=== PATIENT | male | born 1950 | race Caucasian/White ===

== ENCOUNTER 2016-09-10 09:26 | Inpatient (IN) | payer MEDICARE ==
[~2016-09-10] VITALS: Ht 188 cm; Wt 154.2 kg
[2016-09-10 15:10] VITALS: BP 166/76
[2016-09-10 15:30] VITALS: BP 166/76
[2016-09-10 16:36] LABS: BASO # 0.1 x10^3/uL (0.0-0.2); BASO % 1 % (0-3); EOS % 1 % (0-3); HEMOGLOBIN 13.4 g/dL (13.0-17.5); LYMPH # 1.6 x10^3/uL (1.0-4.8); LYMPH % 18 % (24-48); MEAN CORPUSCULAR HEMOGLOBIN 31 pg (25-35); MEAN CORPUSCULAR HGB CONC 33 g/dL (31-37); MEAN CORPUSCULAR VOLUME 93 fL (79-100); MONO % 5 % (0-9); NEUT % 76 % (31-73); PLATELET COUNT 230 x10^3/uL (140-400); RED BLOOD COUNT 4.31 x10^6/uL (4.30-5.70); RED CELL DISTRIBUTION WIDTH 13.9 % (11.5-14.5); WHITE BLOOD COUNT 9.3 x10^3/uL (4.0-11.0)
[2016-09-10 16:57] LABS: ALBUMIN/GLOBULIN RATIO 0.8 (1.0-1.7); CALCIUM 9.6 mg/dL (8.5-10.1); CREATININE 1.4 mg/dL (0.7-1.3); GFR 50.9; POTASSIUM 4.7 mmol/L (3.5-5.1); TOTAL BILIRUBIN 0.3 mg/dL (0.2-1.0)
[2016-09-10] MEDS ORDERED: GUAI400T63 PO (18:19)
[2016-09-10] MEDS ORDERED: ASPI-482 PO (18:19)
[2016-09-10] MEDS ORDERED: SITA100T PO (18:19)
[2016-09-10] MEDS ORDERED: HYDR25TA9 PO (18:19)
[2016-09-10] MEDS ORDERED: ALLO100T PO (18:19)
[2016-09-10] MEDS ORDERED: SIMV20TA3 PO (18:19)
[2016-09-10] MEDS ORDERED: METO50TA2 PO (18:19)
[2016-09-10] MEDS ORDERED: PIOG30TA41 PO (18:19)
[2016-09-10] MEDS ORDERED: METF-620 PO (18:19)
[2016-09-10] MEDS ORDERED: MULT1TAB52 PO (18:19)
[2016-09-10 19:00] VITALS: BP 140/65
[2016-09-10] MEDS: METOPROLOL TART IMMED RELEASE 50 MG TABLET. PO SCH (20:38)
[2016-09-10] MEDS: SIMVASTATIN 20 MG TABLET PO SCH (20:38)
--- NOTE | 2016-09-10 20:59 | PDOC ---
GENERAL General: unable to dictate H&P due to dictation system being down. briefly patient well controlled diabetic with HbA1C of 5.8 earlier this year. cultures 2 weeks ago showed MSSA and enterococcus. has been on good coverage without improvement in toe. Had MRI foot yesterday showing ulcer inferior to the proximal phalanx of the right great toe with a small fluid collection, likely an abcess, between the proximal phalanx of the toe and the ulcer at the inferior border of the toe. the fluid collection measures up to 2.5 cm. there is also marrow edema and likely enhancement in the proximal phalanx of the great toe adjacent to the abscess suspicious for osteomyelitis. ESR 2 weeks ago was 55 in office. Patient also has history of hypertension and gout. He has no drug allergies. He has no pain at the site of infection likely related to neuropathy. Patient is a nonsmoker and does not use drugs. He is a nurse. He has wine on occasion. 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 Antibiotics have been started and ortho and ID have been consulted. He will likely need debridement of the wound. Problems: VITAL SIGNS Vital Signs: Vital Signs Date Time Temp Pulse Resp B/P (MAP) Pulse Ox O2 Delivery O2 Flow Rate FiO2 09/10/16 20:38 80 140/65 09/10/16 19:54 Room Air 09/10/16 19:00 98.1 20 99 98.1 ALLERGIES Allergies: Allergies Coded Allergies Type Severity Reaction Last Updated Verified No Known Drug Allergies 09/10/16 No MEDS Medications: Current Medications Medications (Trade) Dose Ordered Sig/Mark Start Time Stop Time Status Last Admin Dose Admin Allopurinol (Zyloprim) 100 mg DAILY 09/11/16 09:00 Aspirin (Ecotrin) 81 mg 1X ONCE 09/10/16 20:45 09/10/16 20:46 UNV Guaifenesin (Robitussin) 400 mg BID 09/10/16 21:00 Hydrochlorothiazide (Hydrodiuril) 25 mg DAILY 09/11/16 09:00 Linagliptin (Tradjenta) 5 mg DAILY 09/11/16 09:00 Metformin HCl (Glucophage) 1,000 mg 1X ONCE 09/10/16 20:45 09/10/16 20:46 UNV Metoprolol Tartrate (Lopressor) 50 mg BID 09/10/16 21:00 09/10/16 20:38 50 MG Multivitamins (Thera M Plus) 1 tab DAILY 09/11/16 09:00 Pioglitazone HCl (Actos) 30 mg DAILY 09/11/16 09:00 Piperacillin Sod/ Tazobactam Sod 3.375 gm/Sodium Chloride 50 ml @ 100 mls/hr Q6HRS 09/10/16 21:00 Simvastatin (Zocor) 20 mg HS 09/10/16 21:00 09/10/16 20:38 20 MG Vancomycin HCl (Vanco Per Pharmacy) 1 each PRN DAILY PRN 09/10/16 20:00 Vancomycin HCl 2 gm/Sodium Chloride 500 ml @ 250 mls/hr 1X ONCE 09/10/16 21:00 09/10/16 22:59 LAB Lab: Laboratory Tests Test 09/10/16 15:57 09/10/16 16:20 09/10/16 20:36 Glucose (Fingerstick) 200 mg/dL (70-99) 121 mg/dL (70-99) White Blood Count 9.3 x10^3/uL (4.0-11.0) Red Blood Count 4.31 x10^6/uL (4.30-5.70) Hemoglobin 13.4 g/dL (13.0-17.5) Hematocrit 40.0 % (39.0-53.0) Mean Corpuscular Volume 93 fL (79-100) Mean Corpuscular Hemoglobin 31 pg (25-35) Mean Corpuscular Hemoglobin Concent 33 g/dL (31-37) Red Cell Distribution Width 13.9 % (11.5-14.5) Platelet Count 230 x10^3/uL (140-400) Neutrophils (%) (Auto) 76 % (31-73) Lymphocytes (%) (Auto) 18 % (24-48) Monocytes (%) (Auto) 5 % (0-9) Eosinophils (%) (Auto) 1 % (0-3) Basophils (%) (Auto) 1 % (0-3) Neutrophils # (Auto) 7.1 x10^3uL (1.8-7.7) Lymphocytes # (Auto) 1.6 x10^3/uL (1.0-4.8) Monocytes # (Auto) 0.5 x10^3/uL (0.0-1.1) Eosinophils # (Auto) 0.1 x10^3/uL (0.0-0.7) Basophils # (Auto) 0.1 x10^3/uL (0.0-0.2) Erythrocyte Sedimentation Rate 45 (0-15) Sodium Level 138 mmol/L (136-145) Potassium Level 4.7 mmol/L (3.5-5.1) Chloride Level 106 mmol/L (98-107) Carbon Dioxide Level 25 mmol/L (21-32) Anion Gap 7 (6-14) Blood Urea Nitrogen 29 mg/dL (8-26) Creatinine 1.4 mg/dL (0.7-1.3) Estimated GFR (Cockcroft-Gault) 50.9 BUN/Creatinine Ratio 21 (6-20) Glucose Level 202 mg/dL (70-99) Calcium Level 9.6 mg/dL (8.5-10.1) Total Bilirubin 0.3 mg/dL (0.2-1.0) Aspartate Amino Transf (AST/SGOT) 18 U/L (15-37) Alanine Aminotransferase (ALT/SGPT) 22 U/L (16-63) Alkaline Phosphatase 62 U/L (46-116) Total Protein 7.0 g/dL (6.4-8.2) Albumin 3.0 g/dL (3.4-5.0) Albumin/Globulin Ratio 0.8 (1.0-1.7) MARLI THOMPSON MD Sep 10, 2016 20:59
[2016-09-10] MEDS ORDERED: VANCOMYCIN 2 GM in IV NORMAL SALINE 500ML BAG 500 ML IV ONE (21:00)
[2016-09-10] MEDS ORDERED: ASPIRIN ENTERIC COATED 81 MG TABLET.DR. PO ONE (21:00)
[2016-09-10] MEDS: VANCOMYCIN PER PHARMACY MC PRN (21:36)
[2016-09-10] MEDS: PIPERACILLIN/TAZOBACTAM 3.375 GM in IV NORMAL SALINE 50ML 50 ML IV SCH (21:42)
[2016-09-10 23:00] VITALS: BP 132/72
[2016-09-11] MEDS: PIPERACILLIN/TAZOBACTAM 3.375 GM in IV NORMAL SALINE 50ML 50 ML IV SCH ×3 (06:32→18:28)
[2016-09-11 07:00] VITALS: BP 113/65
--- NOTE | 2016-09-11 07:34 | RAD ---
Portable right foot, 3 views, 09/10/2016: History: Osteomyelitis There is severe hypertrophic degenerative change at the first MTP joint. There are small bony fragments and/or periarticular soft tissue calcifications along the plantar aspect of that joint. There is focal soft tissue swelling along the medial margin of the proximal phalanx of the great toe. There is an ill-defined lucency with sclerotic margins in the proximal aspect of the proximal phalanx raising the possibility of chronic osteomyelitis. There is moderate degenerative change at the IP joint of the great toe. There are other moderate scattered hypertrophic degenerative changes, particularly at the midfoot level. There is moderate arthritic change at the ankle joint. There is moderate subcutaneous edema about the foot and ankle. Mild scattered vascular calcifications are noted. IMPRESSION: 1. Extensive degenerative changes, most severe at the first MTP joint with periarticular calcifications and/or bone fragments. 2. Ill-defined lucency in the proximal phalanx of the great toe suggesting chronic osteomyelitis versus a geode on an arthritic basis.
[2016-09-11] MEDS: hydroCHLOROthiazide 25 MG TABLET PO SCH (08:09)
[2016-09-11] MEDS: PIOGLITAZONE 15 MG TABLET. PO SCH (08:09)
[2016-09-11] MEDS: ASPIRIN ENTERIC COATED 81 MG TABLET.DR. PO SCH (08:09)
[2016-09-11] MEDS: METOPROLOL TART IMMED RELEASE 50 MG TABLET. PO SCH ×3 (08:11→20:57)
[2016-09-11] MEDS: LINAGLIPTIN 5 MG TABLET PO SCH (08:13)
[2016-09-11] MEDS: MULTIVITAMIN with MINERAL TABLET. PO SCH (08:13)
[2016-09-11] MEDS: ALLOPURINOL 100 MG TABLET. PO SCH (08:13)
--- NOTE | 2016-09-11 10:39 | PDOC ---
Provider Note Provider Note dm w/ foot osteo, on vanc/zosyn pending cult- labs ok- terrible great toe appearance , mtp joint at risk, likely amp needed- will cont vanc/zosyn for now , dr sandoval consulted HENRY MENDEZ MD Sep 11, 2016 10:39
--- NOTE | 2016-09-11 10:50 | PDOC2 ---
CONSULT Date of Consult Date of Consult DATE: 09/10/16 TIME: 18:38 Reason for Consult Reason for Consult: right foot osteomyelitis Identification/Chief Complaint Chief Complaint right foot ulcer/ drainage Problems: Source Source: Chart review, Patient History of Present Illness Reason for Visit: The patient is a 65 year old male with well controlled DM who has been treated for an ulcer on his foot since may. He states that there was a large callous over the area that has since decompressed. Per Dr. Estrella's note, his cultures previously grew MSSA and enterococcus. He has been treated by his PCP. He was sent in today for a direct admit for his foot. He had an MRI done that reportedly shows edema in the bone with adjacent abscess. I have not seen the images as of yet. He has no fevers, chills, nausea, vomiting. His bg is well controlled. He drinks socially and does not smoke. He is employed as a nurse. Past Medical History Endocrine: Diabetes Past Surgical History Past Surgical History: No pertinent history Family History Family History: No Significant Social History No ALCOHOL: occassional Drugs: None Current Problem List Problem List left foot osteomyelitis Current Medications Current Medications Current Medications Allopurinol (Zyloprim) 100 mg DAILY PO Last administered on 09/11/16 08:13; Start 09/11/16 at 09:00 Aspirin (Ecotrin) 81 mg DAILY PO Last administered on 09/11/16 08:09; Start 09/11/16 at 09:00 Hydrochlorothiazide (Hydrodiuril) 25 mg DAILY PO Last administered on 09/11/16 08:09; Start 09/11/16 at 09:00 Metformin HCl (Glucophage) 1,000 mg BIDWMEALS PO Last administered on 09/11/16 08:09; Start 09/11/16 at 08:00 Metoprolol Tartrate (Lopressor) 50 mg BID PO Last administered on 09/10/16 20: 38; Start 09/10/16 at 21:00 Simvastatin (Zocor) 20 mg HS PO Last administered on 09/10/16 20:38; Start at 21:00 Guaifenesin (Robitussin) 400 mg BID PO ; Start 09/10/16 at 21:00 Multivitamins (Thera M Plus) 1 tab DAILY PO Last administered on 09/11/16 08:13 ; Start 09/11/16 at 09:00 Pioglitazone HCl (Actos) 30 mg DAILY PO Last administered on 09/11/16 08:09; Start 09/11/16 at 09:00 Linagliptin (Tradjenta) 5 mg DAILY PO Last administered on 09/11/16 08:13; Start 09/11/16 at 09:00 Piperacillin Sod/ Tazobactam Sod 3.375 gm/Sodium Chloride 50 ml @ 100 mls/hr Q6HRS IV Last administered on 09/11/16 06:32; Start 09/10/16 at 21:00 Vancomycin HCl (Vanco Per Pharmacy) 1 each PRN DAILY PRN MC SEE COMMENTS Last administered on 09/10/16 21:36; Start 09/10/16 at 20:00 Vancomycin HCl 2 gm/Sodium Chloride 500 ml @ 250 mls/hr 1X ONCE IV Last administered on 09/10/16 22:59; Start 09/10/16 at 21:00; Stop 09/10/16 at 22:59 ; Status DC Aspirin (Ecotrin) 81 mg 1X ONCE PO Last administered on 09/10/16 21:42; Start 09/10/16 at 21:00; Stop 09/10/16 at 21:01; Status DC Metformin HCl (Glucophage) 1,000 mg 1X ONCE PO Last administered on 09/10/16 21:42; Start 09/10/16 at 21:00; Stop 09/10/16 at 21:01; Status DC Vancomycin HCl 2 gm/Sodium Chloride 500 ml @ 250 mls/hr Q12H IV ; Start at 11:00 Vancomycin HCl 1 each 1X ONCE MC ; Start 09/12/16 at 10:30; Stop 09/12/16 at 10: 31 Active Scripts Active Reported Guaifenesin 400 Mg Tablet 400 Mg PO BID Multivitamins (Multivitamin) 1 Each Tablet 1 Tab PO DAILY Aspir 81 (Aspirin) 81 Mg Tablet.dr 81 Mg PO Allopurinol 100 Mg Tablet 1 Tab PO DAILY Simvastatin 20 Mg Tablet 20 Mg PO HS Actos (Pioglitazone Hcl) 30 Mg Tablet 30 Mg PO DAILY Januvia (Sitagliptin Phosphate) 100 Mg Tablet 100 Mg PO DAILY Metformin Hcl 1,000 Mg Tablet 1,000 Mg PO BIDWMEALS Metoprolol Tartrate 50 Mg Tablet 50 Mg PO BID Hydrochlorothiazide Tablet (Hydrochlorothiazide) 25 Mg Tablet 25 Mg PO DAILY Allergies Allergies: Coded Allergies: No Known Drug Allergies (Unverified , 09/10/16) ROS General: No: Chills, Night Sweats, Fatigue, Malaise, Appetite, Other Musculoskeletal: Yes Gait Disturbance, Yes Joint Pain, Yes Joint Stiffness, Yes Joint Swelling Physical Exam Physical Exam Right foot with dressing in place, removed. large great toe with minimal movement. callous present on the undersurface of the foot with minimal drainage. Large area of skin sloughing and thickening, darkened in color with foul odor. Unable to probe to bone due to the large amount of soft tissue present on the undersurface of the foot. 2+ DP and PT pulse. no chronic venous stasis changes on his legs. otherwise nvi distally. General: Alert, Oriented X3, Cooperative, No acute distress HEENT: Atraumatic Lungs: Normal air movement Vitals VITALS Vital Signs Date Time Temp Pulse Resp B/P (MAP) Pulse Ox O2 Delivery O2 Flow Rate FiO2 09/11/16 08:14 59 113/65 09/11/16 07:00 97.6 18 98 Room Air 97.6 Labs Labs Laboratory Tests Test 09/10/16 15:57 09/10/16 16:20 09/10/16 20:36 09/11/16 07:37 Glucose (Fingerstick) 200 mg/dL (70-99) 121 mg/dL (70-99) 106 mg/dL (70-99) White Blood Count 9.3 x10^3/uL (4.0-11.0) Red Blood Count 4.31 x10^6/uL (4.30-5.70) Hemoglobin 13.4 g/dL (13.0-17.5) Hematocrit 40.0 % (39.0-53.0) Mean Corpuscular Volume 93 fL (79-100) Mean Corpuscular Hemoglobin 31 pg (25-35) Mean Corpuscular Hemoglobin Concent 33 g/dL (31-37) Red Cell Distribution Width 13.9 % (11.5-14.5) Platelet Count 230 x10^3/uL (140-400) Neutrophils (%) (Auto) 76 % (31-73) Lymphocytes (%) (Auto) 18 % (24-48) Monocytes (%) (Auto) 5 % (0-9) Eosinophils (%) (Auto) 1 % (0-3) Basophils (%) (Auto) 1 % (0-3) Neutrophils # (Auto) 7.1 x10^3uL (1.8-7.7) Lymphocytes # (Auto) 1.6 x10^3/uL (1.0-4.8) Monocytes # (Auto) 0.5 x10^3/uL (0.0-1.1) Eosinophils # (Auto) 0.1 x10^3/uL (0.0-0.7) Basophils # (Auto) 0.1 x10^3/uL (0.0-0.2) Erythrocyte Sedimentation Rate 45 (0-15) Sodium Level 138 mmol/L (136-145) Potassium Level 4.7 mmol/L (3.5-5.1) Chloride Level 106 mmol/L (98-107) Carbon Dioxide Level 25 mmol/L (21-32) Anion Gap 7 (6-14) Blood Urea Nitrogen 29 mg/dL (8-26) Creatinine 1.4 mg/dL (0.7-1.3) Estimated GFR (Cockcroft-Gault) 50.9 BUN/Creatinine Ratio 21 (6-20) Glucose Level 202 mg/dL (70-99) Calcium Level 9.6 mg/dL (8.5-10.1) Total Bilirubin 0.3 mg/dL (0.2-1.0) Aspartate Amino Transf (AST/SGOT) 18 U/L (15-37) Alanine Aminotransferase (ALT/SGPT) 22 U/L (16-63) Alkaline Phosphatase 62 U/L (46-116) Total Protein 7.0 g/dL (6.4-8.2) Albumin 3.0 g/dL (3.4-5.0) Albumin/Globulin Ratio 0.8 (1.0-1.7) Laboratory Tests Test 09/10/16 15:57 09/10/16 16:20 09/10/16 20:36 09/11/16 07:37 Glucose (Fingerstick) 200 mg/dL (70-99) 121 mg/dL (70-99) 106 mg/dL (70-99) White Blood Count 9.3 x10^3/uL (4.0-11.0) Red Blood Count 4.31 x10^6/uL (4.30-5.70) Hemoglobin 13.4 g/dL (13.0-17.5) Hematocrit 40.0 % (39.0-53.0) Mean Corpuscular Volume 93 fL (79-100) Mean Corpuscular Hemoglobin 31 pg (25-35) Mean Corpuscular Hemoglobin Concent 33 g/dL (31-37) Red Cell Distribution Width 13.9 % (11.5-14.5) Platelet Count 230 x10^3/uL (140-400) Neutrophils (%) (Auto) 76 % (31-73) Lymphocytes (%) (Auto) 18 % (24-48) Monocytes (%) (Auto) 5 % (0-9) Eosinophils (%) (Auto) 1 % (0-3) Basophils (%) (Auto) 1 % (0-3) Neutrophils # (Auto) 7.1 x10^3uL (1.8-7.7) Lymphocytes # (Auto) 1.6 x10^3/uL (1.0-4.8) Monocytes # (Auto) 0.5 x10^3/uL (0.0-1.1) Eosinophils # (Auto) 0.1 x10^3/uL (0.0-0.7) Basophils # (Auto) 0.1 x10^3/uL (0.0-0.2) Erythrocyte Sedimentation Rate 45 (0-15) Sodium Level 138 mmol/L (136-145) Potassium Level 4.7 mmol/L (3.5-5.1) Chloride Level 106 mmol/L (98-107) Carbon Dioxide Level 25 mmol/L (21-32) Anion Gap 7 (6-14) Blood Urea Nitrogen 29 mg/dL (8-26) Creatinine 1.4 mg/dL (0.7-1.3) Estimated GFR (Cockcroft-Gault) 50.9 BUN/Creatinine Ratio 21 (6-20) Glucose Level 202 mg/dL (70-99) Calcium Level 9.6 mg/dL (8.5-10.1) Total Bilirubin 0.3 mg/dL (0.2-1.0) Aspartate Amino Transf (AST/SGOT) 18 U/L (15-37) Alanine Aminotransferase (ALT/SGPT) 22 U/L (16-63) Alkaline Phosphatase 62 U/L (46-116) Total Protein 7.0 g/dL (6.4-8.2) Albumin 3.0 g/dL (3.4-5.0) Albumin/Globulin Ratio 0.8 (1.0-1.7) Images Images Xrays of the right foot reveal erosive changes in the distal first MT and MTP joint, pp. Likely bony involvement of his infection into the first metatarsal. Assessment/Plan Assessment/Plan The patient is a direct admit for right foot osteomyelitis. He is currently admitted to medicine receiving IV antibiotics. He is stable. I will try to review the MRI images after they are uploaded, but if he does have bony involvement he will likely need some sort of an amputation. Unfortunately there is so much skin involvement, it may need to be more proximal than the bony involvement. Foot amputations are out of my scope of practice, so I have consulted podiatry. I have also spoken to the primary physician to see if they would be able to get a hold of podiatry as well to get their input. Currently awaiting their input before developing any further plans. Continue IV antibiotics. LISSA TIJERINA MD Sep 11, 2016 10:50
[2016-09-11 11:00] VITALS: BP 159/71
[2016-09-11] MEDS ORDERED: VANCOMYCIN 2 GM in IV NORMAL SALINE 500ML BAG 500 ML IV SCH (11:00)
[2016-09-11] MEDS: VANCOMYCIN PER PHARMACY MC PRN ×2 (13:12→13:14)
--- NOTE | 2016-09-11 14:56 | PDOC2 ---
CANDACECESAR GLOVE CUTTER 09/11/16 1456: Consult: Consult date: September 10, [address] Estrella for osteomyelitis of right foot HPI: This is a 65 year old male with well controlled DM ( last A1C 5.8 per patient) who developed a callus on his right foot. Sometime in May, as he was stepping out of the shower, he noticed the callus peeling off, he then removed the rest which left a hole. Since the has been followed by his PCP for infection. A wound culture two weeks ago reportedly grew MSSA and enterococcus. He was initially on Keflex before changing to Bactrim and amoxicillin for which he finished about five days ago. An outpatient recent MRI reportedly showed an ulcer inferior to the proximal phalanx of the right great toe with a small fluid collection, measuring 2.5 cm, likely an abscess, between the proximal phalanx of the toe and the ulcer at the inferior border of the toe; marrow edema and likely enhancement in the proximal phalanx of the great toe adjacent to the abscess suspicious for osteomyelitis. Sed rate is 45. Patient has been evaluated by ortho. Await podiatry evaluation. Denies fever, chills, sweats or aches. Denies pain. PMH: Diabetes mellitus Type II, chronic right diabetic foot ulcer, born with one kidney. PSH: Neck abscess s/p I and D. Sinus surgery. SH: Born in [place], lived in [place] and [place]. 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 Former smoker, quit . FH: Positive for prostate and throat cancer All: NKDA MEDS: Reviewed on MAY ROS: Per HPI. Other rider all other ROS negative. PHYSICAL EXAM GENERAL: Propped up in bed, NAD VS: afribile. Stable HENT: PERLL. OC/OP clear NECK: Supple, no adenopathy LUNGS: Clear CV: Normal S1 and S2 ABDOMIEN: Obese, BS active, soft, nontender EXT: No edema or cyanosis. Distal pulses, strong. There is a large loose callous present on the undersurface of the great toe/foot, + probe bone. Minimal erythema and drainage. LABS: Reviewed. Anaerobic-aerobic culture, right foot GRAM STAIN Final WBCS NONE SEEN ORGANISMS NONE SEEN Right foot x-ray There is severe hypertrophic degenerative change at the first MTP joint. There are small bony fragments and/or periarticular soft tissue calcifications along the plantar aspect of that joint. There is focal soft tissue swelling along the medial margin of the proximal phalanx of the great toe. There is an ill-defined lucency with sclerotic margins in the proximal aspect of the proximal phalanx raising the possibility of chronic osteomyelitis. There is moderate degenerative change at the IP joint of the great toe. There are other moderate scattered hypertrophic degenerative changes, particularly at the midfoot level. There is moderate arthritic change at the ankle joint. There is moderate subcutaneous edema about the foot and ankle. Mild scattered vascular calcifications are noted. 1. Extensive degenerative changes, most severe at the first MTP joint with periarticular calcifications and/or bone fragments. 2. Ill-defined lucency in the proximal phalanx of the great toe suggesting chronic osteomyelitis versus a geode on an arthritic basis. IMPRESSION Osteomyelitis of right foot Renal insufficiency, has one kidney Diabetes II Obesity with BMI 43 PLAN Await podiatry evaluation, may need amputation Continue Zosyn and stop vancomycin. Monitor labs values and f/u cultures. Local wound care Thank you CAT KIRK MD 09/11/16 6149: Attending Co-Sign The patient was seen and interviewed as well as examined at the bedside. The chart was reviewed. The case was discussed. Agree with the plan of care. CESAR MARIA APRN Sep 11, 2016 14:56 CAT KIRK MD Sep 11, 2016 14:59
[2016-09-11 15:00] VITALS: BP 146/66
--- NOTE | 2016-09-11 16:42 | PDOC ---
PROGRESS NOTES Subjective Subjective Problems overnight: Objective Vital Signs Vital Signs Date Time Temp Pulse Resp B/P (MAP) Pulse Ox O2 Delivery O2 Flow Rate FiO2 09/11/16 11:00 56 18 159/71 (100) 98 Room Air 09/11/16 07:00 97.6 97.6 Labs Laboratory Tests Test 09/10/16 15:57 09/10/16 16:20 09/10/16 20:36 09/11/16 07:37 Glucose (Fingerstick) 200 mg/dL (70-99) 121 mg/dL (70-99) 106 mg/dL (70-99) White Blood Count 9.3 x10^3/uL (4.0-11.0) Red Blood Count 4.31 x10^6/uL (4.30-5.70) Hemoglobin 13.4 g/dL (13.0-17.5) Hematocrit 40.0 % (39.0-53.0) Mean Corpuscular Volume 93 fL (79-100) Mean Corpuscular Hemoglobin 31 pg (25-35) Mean Corpuscular Hemoglobin Concent 33 g/dL (31-37) Red Cell Distribution Width 13.9 % (11.5-14.5) Platelet Count 230 x10^3/uL (140-400) Neutrophils (%) (Auto) 76 % (31-73) Lymphocytes (%) (Auto) 18 % (24-48) Monocytes (%) (Auto) 5 % (0-9) Eosinophils (%) (Auto) 1 % (0-3) Basophils (%) (Auto) 1 % (0-3) Neutrophils # (Auto) 7.1 x10^3uL (1.8-7.7) Lymphocytes # (Auto) 1.6 x10^3/uL (1.0-4.8) Monocytes # (Auto) 0.5 x10^3/uL (0.0-1.1) Eosinophils # (Auto) 0.1 x10^3/uL (0.0-0.7) Basophils # (Auto) 0.1 x10^3/uL (0.0-0.2) Erythrocyte Sedimentation Rate 45 (0-15) Sodium Level 138 mmol/L (136-145) Potassium Level 4.7 mmol/L (3.5-5.1) Chloride Level 106 mmol/L (98-107) Carbon Dioxide Level 25 mmol/L (21-32) Anion Gap 7 (6-14) Blood Urea Nitrogen 29 mg/dL (8-26) Creatinine 1.4 mg/dL (0.7-1.3) Estimated GFR (Cockcroft-Gault) 50.9 BUN/Creatinine Ratio 21 (6-20) Glucose Level 202 mg/dL (70-99) Calcium Level 9.6 mg/dL (8.5-10.1) Total Bilirubin 0.3 mg/dL (0.2-1.0) Aspartate Amino Transf (AST/SGOT) 18 U/L (15-37) Alanine Aminotransferase (ALT/SGPT) 22 U/L (16-63) Alkaline Phosphatase 62 U/L (46-116) Total Protein 7.0 g/dL (6.4-8.2) Albumin 3.0 g/dL (3.4-5.0) Albumin/Globulin Ratio 0.8 (1.0-1.7) Test 09/11/16 12:01 Glucose (Fingerstick) 130 mg/dL (70-99) Laboratory Tests Test 09/10/16 20:36 09/11/16 07:37 09/11/16 12:01 Glucose (Fingerstick) 121 mg/dL (70-99) 106 mg/dL (70-99) 130 mg/dL (70-99) Assessment Assessment POD# [], S/P [] Problems: Plan Plan of Care Spoke with my partner, Dr. Self. He is willing to assist in surgery on the patient this tuesday AM for a debridement. He will need to be NPO at midnight tuesday pm. We will see surgically what can be done from a debridement standpoint. He may still need an amp at a later date , but we will start with a local debridement and wound care. LISSA TIJERINA MD Sep 11, 2016 16:42
[2016-09-11 19:00] VITALS: BP 161/81
[2016-09-11] MEDS: SIMVASTATIN 20 MG TABLET PO SCH (20:57)
[2016-09-11 23:00] VITALS: BP 149/88
[2016-09-12] MEDS: PIPERACILLIN/TAZOBACTAM 3.375 GM in IV NORMAL SALINE 50ML 50 ML IV SCH ×4 (00:09→18:05)
[2016-09-12 03:00] VITALS: BP 144/81
[2016-09-12 07:45] VITALS: BP 157/74
[2016-09-12] MEDS: PIOGLITAZONE 15 MG TABLET. PO SCH (09:25)
[2016-09-12] MEDS: ASPIRIN ENTERIC COATED 81 MG TABLET.DR. PO SCH (09:26)
[2016-09-12] MEDS: hydroCHLOROthiazide 25 MG TABLET PO SCH (09:26)
[2016-09-12] MEDS: METOPROLOL TART IMMED RELEASE 50 MG TABLET. PO SCH ×2 (09:27→20:32)
[2016-09-12] MEDS: LINAGLIPTIN 5 MG TABLET PO SCH (09:28)
[2016-09-12] MEDS: MULTIVITAMIN with MINERAL TABLET. PO SCH (09:28)
[2016-09-12] MEDS: ALLOPURINOL 100 MG TABLET. PO SCH (09:28)
--- NOTE | 2016-09-12 10:45 | PDOC ---
Provider Note Provider Note vss, no temp- glucose fine, a1c low 5.5- will not add acei as he has only 1 kidney but low dose might be worth a trial- cont zosyn, surg consult pending, keyshawnstefano needs toe amp to prevent proximal spread to metatrsal HENRY MENDEZ MD Sep 12, 2016 10:45
--- NOTE | 2016-09-12 10:50 | PDOC ---
Infectious Disease Note Subjective Subjective Comfortable, denies pain ROS ROS GEN: Denies fevers, chills, sweats CV: Denies chest pain RESP: Denies shortness of air, cough GI: Denies n/v/d Vital Sign Vital Signs Vital Signs Date Time Temp Pulse Resp B/P (MAP) Pulse Ox O2 Delivery O2 Flow Rate FiO2 09/12/16 09:27 61 157/74 09/12/16 07:45 98.2 18 96 Room Air 98.2 Physical Exam PHYSICAL EXAM GENERAL: Sitting in the chair, relaxed appearance, NAD LUNGS: Clear CV: Normal S1 and S2 ABDOMEN: Obese, BS active, soft, nontender EXT: No edema or cyanosis. Right foot bandaged. (see previous note for description) SKIN: Without rash BRIDGE TEACHER: Alert & oriented x 3. IV: ok Labs Lab Laboratory Tests Test 09/11/16 12:01 09/11/16 16:44 09/11/16 20:20 09/12/16 07:56 Glucose (Fingerstick) 130 mg/dL (70-99) 103 mg/dL (70-99) 101 mg/dL (70-99) 88 mg/dL (70-99) Micro GRAM STAIN Final WBCS NONE SEEN ORGANISMS NONE SEEN Objective Assessment Osteomyelitis of right foot. Swab: gram stain no organisms. culture pending Renal insufficiency, has one kidney Diabetes II Obesity with BMI 43 Plan Plan of Care Continue Zosyn Last dose vanc 09/11. Await debridement tomorrow Attending Co-Sign The patient was seen and interviewed as well as examined at the bedside. The chart was reviewed. The case was discussed. Agree with the plan of care. CESAR MARIA APRN Sep 12, 2016 10:50 CAT KIRK MD Sep 12, 2016 13:23
[2016-09-12 11:00] VITALS: BP 160/68
[2016-09-12] MEDS ORDERED: LISINOPRIL 5 MG TABLET. PO SCH (11:00)
[2016-09-12 15:00] VITALS: BP 119/80
[2016-09-12 19:00] VITALS: BP 146/77
[2016-09-12] MEDS: SIMVASTATIN 20 MG TABLET PO SCH (20:32)
[2016-09-12 23:00] VITALS: BP 140/67
[2016-09-13] VITALS (12 sets, daily range): BP systolic 124–167; BP diastolic 48–89
[2016-09-13] MEDS: PIPERACILLIN/TAZOBACTAM 3.375 GM in IV NORMAL SALINE 50ML 50 ML IV SCH ×5 (00:11→17:04)
[2016-09-13] MEDS ORDERED: IV RINGERS,LACTATED 1000ML 1,000 ML IV SCH (06:40)
[2016-09-13] MEDS ORDERED: DESFLURANE > 120 MINUTES IH ONE (06:43)
[2016-09-13] MEDS ORDERED: DESFLURANE 31 TO 60 MINUTES IH ONE (06:43)
[2016-09-13] MEDS ORDERED: LIDOCAINE 2% PF Vial for OR 5 ML VIAL. ONE (06:44)
[2016-09-13] MEDS ORDERED: SUCCINYLCHOLINE 200 MG/10 ML VIAL. ONE (06:44)
[2016-09-13] MEDS ORDERED: DEXAMETHASONE SOD PHOS 20 MG/5 ML VIAL. ONE (06:44)
[2016-09-13] MEDS ORDERED: ROCURONIUM 50 MG/5 ML VIAL. ONE (06:44)
[2016-09-13] MEDS ORDERED: PROPOFOL 20 ML IV ONE (06:44)
[2016-09-13] MEDS ORDERED: LIDOCAINE 1% 1 ML SYRINGE. ID PRN (06:45)
[2016-09-13] MEDS ORDERED: fentaNYL PF VIAL 100 MCG/2 ML VIAL IV PRN ×2 (06:45)
[2016-09-13] MEDS ORDERED: PROCHLORPERAZINE 10 MG/2 ML VIAL. IV PRN (06:45)
[2016-09-13] MEDS ORDERED: MORPHINE SULFATE 2 MG/ML DISP.SYRIN. IV PRN (06:45)
[2016-09-13] MEDS ORDERED: ONDANSETRON PF 4 MG/2 ML VIAL. IV PRN (06:45)
[2016-09-13] MEDS ORDERED: HYDROmorphone 2 MG/ML VIAL IV PRN (06:45)
[2016-09-13] MEDS ORDERED: BUPIVACAINE-EPI 0.25%-1:200000 50 ML VIAL. ONE (07:08)
[2016-09-13] MEDS ORDERED: fentaNYL PF VIAL 100 MCG/2 ML VIAL ONE (07:24)
--- NOTE | 2016-09-13 07:44 | PDOC ---
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 I was asked by Dr. Maxwell to assist with his care. He started with a callus on the bottom of his foot in late 2015. He has been on antibiotics and tried an offloading shoe so far. 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 He has swelling of the toe, plantar drainage and some skin necrosis. Objective Vital Signs Vital Signs Date Time Temp Pulse Resp B/P (MAP) Pulse Ox O2 Delivery O2 Flow Rate FiO2 09/13/16 06:51 96.9 57 20 192/91 96 Room Air 96.9 Physical Exam There is an plantar open wound approximately 2 x 2 centimeters, with some surrounding necrotic skin. There is serosanguineous drainage. The first MTP joint is markedly swollen, approximately twice the size of his other first MTP joint. This is probably a chronically septic joint and has chronic osteomyelitis in the distal metatarsal head and proximal first metatarsal and in the sesamoids. He has good pulses. Sensation fair. Labs Laboratory Tests Test 09/11/16 12:01 09/11/16 16:44 09/11/16 20:20 09/12/16 07:56 Glucose (Fingerstick) 130 mg/dL (70-99) 103 mg/dL (70-99) 101 mg/dL (70-99) 88 mg/dL (70-99) Test 09/12/16 12:11 09/12/16 16:43 09/13/16 07:12 Glucose (Fingerstick) 96 mg/dL (70-99) 109 mg/dL (70-99) 89 mg/dL (70-99) Laboratory Tests Test 09/12/16 07:56 09/12/16 12:11 09/12/16 16:43 09/13/16 07:12 Glucose (Fingerstick) 88 mg/dL (70-99) 96 mg/dL (70-99) 109 mg/dL (70-99) 89 mg/dL (70-99) Imaging I reviewed his x-rays and MRI. Chronic osteomyelitis in the first MTP joint region. Assessment Assessment Osteomyelitis first MTP joint. Diabetic plantar ulcer. Problems: Plan Plan of Care I talked to him about options for treatment. We could try a simple debridement. I would be more likely to consider that if it was simply a soft tissue wound without the osteomyelitis. In light of osteomyelitis which appears established, (and in a diabetic), amputation seems likely more predictable solution. I spoke to him about a first ray amputation which would remove the areas of osteomyelitis, and remove the open wound, and leave him with a surgical wound with more predictable healing. We discussed offloading until the incision is healed for 3-4 weeks, and orthotic fitting in 4-6 weeks. We discussed the potential risks of poor healing, ongoing infection, or need for future amputation or further surgery. All of his questions were answered and he desires to proceed with a first ray amputation. KENNETH CORDERO MD Sep 13, 2016 07:44
[2016-09-13] MEDS ORDERED: ePHEDrine PF IN SALINE 50 MG/5 ML DISP.SYRIN IV ONE (08:22)
[2016-09-13] MEDS ORDERED: SEVOFLURANE 31 TO 60 MINUTES. IH ONE (08:22)
--- NOTE | 2016-09-13 08:28 | PDOC ---
GENERAL General: vss and afebrile. for amputation today. exam stable. continue same. Problems: VITAL SIGNS Vital Signs: Vital Signs Date Time Temp Pulse Resp B/P (MAP) Pulse Ox O2 Delivery O2 Flow Rate FiO2 09/13/16 06:51 96.9 57 20 192/91 96 Room Air 96.9 I & O I & O Intake and Output 09/13/16 07:00 Intake Total 960 ml Balance 960 ml Intake Oral 960 ml # Voids 5 # Bowel Movements 1 ALLERGIES Allergies: Allergies Coded Allergies Type Severity Reaction Last Updated Verified No Known Drug Allergies 09/10/16 No MEDS Medications: Current Medications Medications (Trade) Dose Ordered Sig/Mark Start Time Stop Time Status Last Admin Dose Admin Allopurinol (Zyloprim) 100 mg DAILY 09/11/16 09:00 09/12/16 09:28 100 MG Aspirin (Ecotrin) 81 mg 1X ONCE 09/10/16 21:00 09/10/16 21:01 DC 09/10/16 21:42 81 MG Bupivacaine HCl/ Epinephrine Bitart (Marcaine-Epi 0.25%-1:[id number]) 50 ml STK-MED ONCE 09/13/16 07:08 09/13/16 07:09 DC Cefazolin Sodium 50 ml @ As Directed STK-MED ONCE 09/13/16 08:26 09/13/16 08:27 DC Cefazolin Sodium 3 gm/Sodium Chloride 100 ml @ 200 mls/hr 1X ONCE 09/13/16 08:30 09/13/16 08:59 09/13/16 07:52 200 MLS/HR Desflurane (Suprane) 30 ml STK-MED ONCE 09/13/16 06:43 09/13/16 06:44 DC Dexamethasone Sodium Phosphate (Decadron) 20 mg STK-MED ONCE 09/13/16 06:44 09/13/16 06:45 DC Ephedrine Sulfate 50 mg STK-MED ONCE 09/13/16 08:22 09/13/16 08:23 DC Fentanyl Citrate (Fentanyl 2ml Vial) 100 mcg STK-MED ONCE 09/13/16 07:24 09/13/16 07:25 DC Guaifenesin (Robitussin) 400 mg BID 09/10/16 21:00 09/11/16 21:21 DC Hydrochlorothiazide (Hydrodiuril) 25 mg DAILY 09/11/16 09:00 09/12/16 10:28 DC 09/12/16 09:26 25 MG Hydrochlorothiazide (Microzide) 12.5 mg DAILY 09/13/16 09:00 Hydromorphone HCl (Dilaudid) 0.5 mg PRN Q10MIN PRN 09/13/16 06:45 09/14/16 06:44 Lidocaine HCl (Lidocaine Pf 2% Vial) 5 ml STK-MED ONCE 09/13/16 06:44 09/13/16 06:45 DC Linagliptin (Tradjenta) 5 mg DAILY 09/11/16 09:00 09/12/16 09:28 5 MG Lisinopril (Prinivil) 5 mg DAILY 09/12/16 11:00 09/12/16 11:00 DC Metformin HCl (Glucophage) 1,000 mg 1X ONCE 09/10/16 21:00 09/10/16 21:01 DC 09/10/16 21:42 1,000 MG Metoprolol Tartrate (Lopressor) 50 mg BID 09/10/16 21:00 09/12/16 20:32 50 MG Morphine Sulfate 1 mg PRN Q10MIN PRN 09/13/16 06:45 09/14/16 06:44 Multivitamins (Thera M Plus) 1 tab DAILY 09/11/16 09:00 09/12/16 09:28 1 TAB Ondansetron HCl (Zofran) 4 mg PRN Q6HRS PRN 09/13/16 06:45 09/14/16 06:44 Pioglitazone HCl (Actos) 30 mg DAILY 09/11/16 09:00 09/12/16 09:25 30 MG Piperacillin Sod/ Tazobactam Sod 3.375 gm/Sodium Chloride 50 ml @ 100 mls/hr Q6HRS 09/10/16 21:00 09/13/16 05:59 100 MLS/HR Prochlorperazine Edisylate (Compazine) 5 mg PACU PRN PRN 09/13/16 06:45 09/14/16 06:44 Propofol 20 ml @ As Directed STK-MED ONCE 09/13/16 06:44 09/13/16 06:45 DC Ringer's Solution 1,000 ml @ 30 mls/hr Q24H 7/3/17 06:40 09/13/16 18:39 09/13/16 07:37 30 MLS/HR Rocuronium [place] (Zemuron) 50 mg STK-MED ONCE 09/13/16 06:44 09/13/16 06:45 DC Sevoflurane (Ultane) 30 ml STK-MED ONCE 09/13/16 08:22 09/13/16 08:23 DC Simvastatin (Zocor) 20 mg HS 09/10/16 21:00 09/12/16 20:32 20 MG Succinylcholine Chloride (Anectine) 200 mg STK-MED ONCE 09/13/16 06:44 09/13/16 06:45 DC Vancomycin HCl 1 each 1X ONCE 09/12/16 10:30 09/12/16 10:30 DC Vancomycin HCl (Vanco Per Pharmacy) 1 each PRN DAILY PRN 09/10/16 20:00 09/11/16 14:53 DC 09/11/16 13:14 1 EACH Vancomycin HCl 2 gm/Sodium Chloride 500 ml @ 250 mls/hr Q12H 09/11/16 11:00 09/11/16 14:53 DC 09/11/16 12:03 250 MLS/HR LAB Lab: Laboratory Tests Test 09/12/16 12:11 09/12/16 16:43 09/13/16 07:12 Glucose (Fingerstick) 96 mg/dL (70-99) 109 mg/dL (70-99) 89 mg/dL (70-99) MARLI THOMPSON MD Sep 13, 2016 08:28
--- NOTE | 2016-09-13 08:40 | PDOC ---
BRIEF OPERATIVE NOTE Date: Sep 13, 2016 Pre-Op Diagnosis Right great toe osteomyelitis Post-Op Diagnosis same Procedure Performed Right great toe amputation. Surgeon Don Self MD, Kaetlin Maxwell MD Family Consultant Tay Acosta PA-C Blood Loss 50cc Specimens Obtained none Findings none Complications none TAY ACOSTA PAC Sep 13, 2016 08:40
--- NOTE | 2016-09-13 08:51 | PDOC4 ---
Operative Note Operative Note Date of Procedure: September 13, 2016 Pre-Op Diagnosis: Osteomyelitis right great toe Post-Op Diagnosis: Same Procedure: amputation metatarsal with toe, single CPT 71065 Surgeon: Kenneth Self MD Balance Truing Inspector: Katelin Maxwell M.D., Isai BAH Anesthesia: General EBL: 50 mL Specimens Obtained: Right great toe Complications: none Drains: none Indications for Procedure: The patient is a 65-year-old with infected right great toe, and complications of diabetes. There is an open wound and exposed bone of the great toe. There is obvious osteomyelitis on exam and radiographically and by MRI. He also has severe osteoarthritis of the first metatarsophalangeal joint.The patient and I discussed the risks, benefits and alternatives of surgery. We discussed debridement of deep bone and attempted wound healing which I think has a low chance of success. We discussed first ray amputation which is my recommendation, and after explanation he agrees. This should solve the problems of the open wound and deep infection and allow primary healing of the surgical incision without arthritis, without an open wound, and without ongoing deep infection. We discussed the potential risks of wound dehiscence, ongoing infection, need for further surgery, or other potential surgical or anesthetic complications. All of his questions about surgery were answered and he desires to proceed. Procedure in Detail: The patient was identified in the preoperative holding area. The correct right great toe was marked by me. The patient was taken to the operating room where general anesthesia was used. The patient was positioned supine on the operating table. The patient remains on scheduled antibioticsbut Ancef was also given intravenously.A tourniquet was placed on the thigh. A timeout procedure was performed. The skin was prepared in sterile fashion using chlorhexidine scrub. Sterile drapes were applied. The limb was elevated to exsanguinate it. The tourniquet was inflated to 350 mmHg. A racquet-shaped incision was used at the base of the great toe extending onto the medial border of the foot at the junction of the plantar and dorsal skin. Sharp dissection was used. The toe was disarticulated at the metatarsophalangeal joint. The toe was noted to be sclerotic and infected. It was sent for specimen. Additional bone was resected from the metatarsal head to allow for a tension-free closure and the abnormal bone at the metatarsal head also appeared to have chronic osteomyelitis. An oscillating saw was used to resect the metatarsal shaft and neck, removing the abnormal sclerotic and infected bone distally, back to healthy bone edge. Rongeurs were used for further smoothing of the bone edges. Copious irrigation with saline was now performed. The tourniquet was released. Bovie electrocautery was used for hemostasis. Local anesthetic using 30 mL of 0.25% Marcaine with epinephrine was used. Final dog ear and subcutaneous adipose tissue trimming was performed for a nice cosmetic tension-free closure. The incision was now reapproximated with a single 2-0 Vicryl suture to reapproximate the flaps and close the space. The skin was repaired with #2-0 nylon simple sutures, horizontal mattress sutures and vertical mattress sutures. A nice tension-free repair was obtained. Sterile dressings were applied. Needle and sponge counts were correct. There were no apparent complications. KENNETH SELF MD Sep 13, 2016 08:51
[2016-09-13] MEDS: ASPIRIN ENTERIC COATED 81 MG TABLET.DR. PO SCH (10:28)
[2016-09-13] MEDS: PIOGLITAZONE 15 MG TABLET. PO SCH (10:28)
[2016-09-13] MEDS: ALLOPURINOL 100 MG TABLET. PO SCH (10:28)
[2016-09-13] MEDS: MULTIVITAMIN with MINERAL TABLET. PO SCH (10:28)
[2016-09-13] MEDS: LINAGLIPTIN 5 MG TABLET PO SCH (10:28)
[2016-09-13] MEDS: hydroCHLOROthiazide 12.5 MG CAPSULE PO SCH (10:29)
[2016-09-13] MEDS: METOPROLOL TART IMMED RELEASE 50 MG TABLET. PO SCH ×2 (10:29→20:35)
--- NOTE | 2016-09-13 11:11 | RAD ---
Right foot, 2 views, 09/13/2016: History: Postop amputation Comparison is made to a study from 09/10/2016. There has been interval amputation of the great toe at the mid first metatarsal level. Several tiny bone fragments are present in the soft tissues at the amputation site. There are moderate scattered degenerative changes. There is no evidence of a retained surgical instrument, needle or radiopaque sponge.
--- NOTE | 2016-09-13 15:11 | PDOC ---
Infectious Disease Note Subjective Subjective Comfortable, denies pain ,, had amputation done ROS ROS GEN: Denies fevers, chills, sweats HEENT: Denies blurred vision, sore throat CV: Denies chest pain RESP: Denies shortness of air, cough GI: Denies n/v/d NEURO: Denies confusion, dizziness MSK: Denies weakness, joint pain/swelling Vital Sign Vital Signs Vital Signs Date Time Temp Pulse Resp B/P (MAP) Pulse Ox O2 Delivery O2 Flow Rate FiO2 09/13/16 10:45 66 20 147/76 (99) 94 Room Air 09/13/16 10:30 97.5 97.5 09/13/16 08:59 10 Physical Exam PHYSICAL EXAM GENERAL: NAD, Alert HEENT: PERRL, OC/OP NECK: Supple, no JVD, no LN LUNGS: Clear HEART: S1S2, no gallop, no murmur ABD: Soft, NT, no organomegaly, no rebound EXT: No edema, no cyanosis, post surgery dressing not opened STUDENT SERVICES COUNSELOR: Alert, oriented x 3, no focal neurologic deficit SKIN: No rash IV: ok Labs Lab Laboratory Tests Test 09/12/16 16:43 09/13/16 07:12 09/13/16 11:51 Glucose (Fingerstick) 109 mg/dL (70-99) 89 mg/dL (70-99) 189 mg/dL (70-99) Objective Assessment Osteomyelitis of right foot. s/p Amputation Renal insufficiency, has one kidney Diabetes II Obesity with BMI 43 Plan Plan of Care Continue Zosyn,, soon to change to po Last dose vanc 09/11. CAT KIRK MD Sep 13, 2016 15:11
[2016-09-13] MEDS ORDERED: NORMAL SALINE IV SCH (16:00)
[2016-09-13] MEDS ORDERED: CEFAZOLIN SODIUM IV SCH (16:00)
[2016-09-13] MEDS: SIMVASTATIN 20 MG TABLET PO SCH (20:35)
[2016-09-14] MEDS: PIPERACILLIN/TAZOBACTAM 3.375 GM in IV NORMAL SALINE 50ML 50 ML IV SCH ×4 (01:30→16:54)
[2016-09-14 03:01] VITALS: BP 135/58
[2016-09-14 07:00] VITALS: BP 154/80
[2016-09-14] MEDS: ASPIRIN ENTERIC COATED 81 MG TABLET.DR. PO SCH (08:08)
[2016-09-14] MEDS: ALLOPURINOL 100 MG TABLET. PO SCH (08:08)
[2016-09-14] MEDS: hydroCHLOROthiazide 12.5 MG CAPSULE PO SCH (08:09)
[2016-09-14] MEDS: MULTIVITAMIN with MINERAL TABLET. PO SCH (08:09)
[2016-09-14] MEDS: LINAGLIPTIN 5 MG TABLET PO SCH (08:09)
[2016-09-14] MEDS: PIOGLITAZONE 15 MG TABLET. PO SCH (08:09)
[2016-09-14] MEDS: METOPROLOL TART IMMED RELEASE 50 MG TABLET. PO SCH ×2 (08:15→19:58)
--- NOTE | 2016-09-14 08:45 | PDOC ---
Infectious Disease Note Subjective Subjective Comfortable, denies pain ,, had amputation done ROS ROS GEN: Denies fevers, chills, sweats HEENT: Denies blurred vision, sore throat CV: Denies chest pain RESP: Denies shortness of air, cough GI: Denies n/v/d NEURO: Denies confusion, dizziness MSK: Denies weakness, joint pain/swelling Vital Sign Vital Signs Vital Signs Date Time Temp Pulse Resp B/P (MAP) Pulse Ox O2 Delivery O2 Flow Rate FiO2 09/14/16 08:15 62 154/80 09/14/16 07:00 97.8 18 97 Room Air 97.8 09/13/16 08:59 10 Physical Exam PHYSICAL EXAM GENERAL: NAD, Alert HEENT: PERRL, OC/OP NECK: Supple, no JVD, no LN LUNGS: Clear HEART: S1S2, no gallop, no murmur ABD: Soft, NT, no organomegaly, no rebound EXT: No edema, no cyanosis PRESIDING JUDGE: Alert, oriented x 3, no focal neurologic deficit SKIN: No rash IV: ok Labs Lab Laboratory Tests Test 09/13/16 11:51 09/13/16 16:42 09/13/16 20:03 09/13/16 21:40 Glucose (Fingerstick) 189 mg/dL (70-99) 189 mg/dL (70-99) 195 mg/dL (70-99) 147 mg/dL (70-99) Test 09/14/16 07:06 Glucose (Fingerstick) 117 mg/dL (70-99) Micro ANAEROBIC-AEROBIC CULTURE Preliminary Preliminary report ANAEROBIC RES 1 Preliminary Comment No anaerobes recovered in 48 hours. AEROBIC CULT Preliminary Preliminary report AEROBIC RES 1 Preliminary Enterococcus species Moderate growth AEROBIC RES 2 Preliminary Staphylococcus aureus Moderate growth Performed at: [address] [id number] Fabrication Lead: Johana Hall MD, Phone: [phone] Objective Assessment Osteomyelitis of right foot. s/p Amputation Renal insufficiency, has one kidney Diabetes II Obesity with BMI 43 Plan Plan of Care Continue Zosyn,, soon to change to po Last dose vanc 09/11. CAT KIRK MD Sep 14, 2016 08:45
--- NOTE | 2016-09-14 09:40 | PDOC ---
GENERAL General: vss and afebrile. blood sugars good. blood pressure some elevated and lisinopril added to regimen. chest clear and heart regular. right foot bandaged and operative report and post op xrays reviewed. length of antibiotics per ID and wound restrictions per ortho at [place]. Problems: VITAL SIGNS Vital Signs: Vital Signs Date Time Temp Pulse Resp B/P (MAP) Pulse Ox O2 Delivery O2 Flow Rate FiO2 09/14/16 08:15 62 154/80 09/14/16 08:00 Room Air 10.0 09/14/16 07:00 97.8 18 97 97.8 I & O I & O Intake and Output 09/14/16 07:00 Intake Total 555 ml Output Total 50 ml Balance 505 ml Intake Oral 555 ml Output Urine Total 0 ml Estimated Blood Loss 50 ml # Voids 5 ALLERGIES Allergies: Allergies Coded Allergies Type Severity Reaction Last Updated Verified No Known Drug Allergies 09/10/16 No MEDS Medications: Current Medications Medications (Trade) Dose Ordered Sig/Mark Start Time Stop Time Status Last Admin Dose Admin Allopurinol (Zyloprim) 100 mg DAILY 09/11/16 09:00 09/14/16 08:08 100 MG Aspirin (Ecotrin) 81 mg 1X ONCE 09/10/16 21:00 09/10/16 21:01 DC 09/10/16 21:42 81 MG Bupivacaine HCl/ Epinephrine Bitart (Marcaine-Epi 0.25%-1:005978) 50 ml STK-MED ONCE 09/13/16 07:08 09/13/16 07:09 DC 09/13/16 08:50 40 ML Cefazolin Sodium 3 gm/Sodium Chloride 100 ml @ 200 mls/hr Q8H 09/13/16 16:00 09/14/16 00:29 DC 09/14/16 00:29 200 MLS/HR Desflurane (Suprane) 30 ml STK-MED ONCE 09/13/16 06:43 09/13/16 06:44 DC Dexamethasone Sodium Phosphate (Decadron) 20 mg STK-MED ONCE 09/13/16 06:44 09/13/16 06:45 DC Ephedrine Sulfate 50 mg STK-MED ONCE 09/13/16 08:22 09/13/16 08:23 DC Fentanyl Citrate (Fentanyl 2ml Vial) 100 mcg STK-MED ONCE 09/13/16 07:24 09/13/16 07:25 DC Guaifenesin (Robitussin) 400 mg BID 09/10/16 21:00 09/11/16 21:21 DC Hydrochlorothiazide (Hydrodiuril) 25 mg DAILY 09/11/16 09:00 09/12/16 10:28 DC 09/12/16 09:26 25 MG Hydrochlorothiazide (Microzide) 12.5 mg DAILY 09/13/16 09:00 09/14/16 08:09 12.5 MG Hydromorphone HCl (Dilaudid) 0.5 mg PRN Q10MIN PRN 09/13/16 06:45 09/14/16 06:44 DC Lidocaine HCl (Lidocaine Pf 2% Vial) 5 ml STK-MED ONCE 09/13/16 06:44 09/13/16 06:45 DC Linagliptin (Tradjenta) 5 mg DAILY 09/11/16 09:00 09/14/16 08:09 5 MG Lisinopril (Prinivil) 20 mg DAILY 09/14/16 10:00 UNV Metformin HCl (Glucophage) 1,000 mg 1X ONCE 09/10/16 21:00 09/10/16 21:01 DC 09/10/16 21:42 1,000 MG Metoprolol Tartrate (Lopressor) 50 mg BID 09/10/16 21:00 09/14/16 08:15 50 MG Morphine Sulfate 1 mg PRN Q10MIN PRN 09/13/16 06:45 09/14/16 06:44 DC Multivitamins (Thera M Plus) 1 tab DAILY 09/11/16 09:00 09/14/16 08:09 1 TAB Ondansetron HCl (Zofran) 4 mg PRN Q6HRS PRN 09/13/16 06:45 09/14/16 06:44 DC Pioglitazone HCl (Actos) 30 mg DAILY 09/11/16 09:00 09/14/16 08:09 30 MG Piperacillin Sod/ Tazobactam Sod 3.375 gm/Sodium Chloride 50 ml @ 100 mls/hr Q6HRS 09/10/16 21:00 09/14/16 06:28 100 MLS/HR Prochlorperazine Edisylate (Compazine) 5 mg PACU PRN PRN 09/13/16 06:45 09/14/16 06:44 DC Propofol 20 ml @ As Directed STK-MED ONCE 09/13/16 06:44 09/13/16 06:45 DC Ringer's Solution 1,000 ml @ 30 mls/hr Q24H 09/13/16 06:40 09/13/16 18:39 DC 09/13/16 07:37 30 MLS/HR Rocuronium [place] (Zemuron) 50 mg STK-MED ONCE 09/13/16 06:44 09/13/16 06:45 DC Sevoflurane (Ultane) 30 ml STK-MED ONCE 09/13/16 08:22 09/13/16 08:23 DC Simvastatin (Zocor) 20 mg HS 09/10/16 21:00 09/13/16 20:35 20 MG Succinylcholine Chloride (Anectine) 200 mg STK-MED ONCE 09/13/16 06:44 09/13/16 06:45 DC Vancomycin HCl 1 each 1X ONCE 09/12/16 10:30 09/12/16 10:30 DC Vancomycin HCl (Vanco Per Pharmacy) 1 each PRN DAILY PRN 09/10/16 20:00 09/11/16 14:53 DC 09/11/16 13:14 1 EACH Vancomycin HCl 2 gm/Sodium Chloride 500 ml @ 250 mls/hr Q12H 09/11/16 11:00 09/11/16 14:53 DC 09/11/16 12:03 250 MLS/HR LAB Lab: Laboratory Tests Test 09/13/16 11:51 09/13/16 16:42 09/13/16 20:03 09/13/16 21:40 Glucose (Fingerstick) 189 mg/dL (70-99) 189 mg/dL (70-99) 195 mg/dL (70-99) 147 mg/dL (70-99) Test 09/14/16 07:06 Glucose (Fingerstick) 117 mg/dL (70-99) MARLI THOMPSON MD Sep 14, 2016 09:40
[2016-09-14] MEDS: LISINOPRIL 20 MG TABLET PO SCH (10:00)
[2016-09-14 10:41] VITALS: BP 123/68
[2016-09-14 14:48] VITALS: BP 136/66
--- NOTE | 2016-09-14 16:22 | PDOC ---
PROGRESS NOTES Subjective Subjective Problems overnight: No acute issues. no pain. some phantom sensation over his great toe. Dressing is cdi. receiving antibiotics. Objective Vital Signs Vital Signs Date Time Temp Pulse Resp B/P (MAP) Pulse Ox O2 Delivery O2 Flow Rate FiO2 09/14/16 14:48 97.9 66 19 136/66 (89) 96 Room Air 97.9 09/14/16 08:00 10.0 Physical Exam RLE: dressing cdi with no shadowing or drainage. decreased slt over the medial foot. grossly moves toes and ankle. 2 + DP pulse. Labs Laboratory Tests Test 09/12/16 16:43 09/13/16 07:12 09/13/16 11:51 09/13/16 16:42 Glucose (Fingerstick) 109 mg/dL (70-99) 89 mg/dL (70-99) 189 mg/dL (70-99) 189 mg/dL (70-99) Test 09/13/16 20:03 09/13/16 21:40 09/14/16 07:06 09/14/16 11:12 Glucose (Fingerstick) 195 mg/dL (70-99) 147 mg/dL (70-99) 117 mg/dL (70-99) 113 mg/dL (70-99) Laboratory Tests Test 09/13/16 16:42 09/13/16 20:03 09/13/16 21:40 09/14/16 07:06 Glucose (Fingerstick) 189 mg/dL (70-99) 195 mg/dL (70-99) 147 mg/dL (70-99) 117 mg/dL (70-99) Test 09/14/16 11:12 Glucose (Fingerstick) 113 mg/dL (70-99) Assessment Assessment POD# 1, S/P right partial first ray amputation Problems: (1) Osteomyelitis due to secondary diabetes Plan Plan of Care currently doing well has recieved his half sole shoe. has been wb on the heel with a walker. will clarify with Dr. Self if he wants him completely nwb on the right or if he is able to wb through the heel. possible dc tomorrow on oral abx per the patient will need to fu in the office with dr self in 2 weeks for possible suture removal. LISSA TIJERINA MD Sep 14, 2016 16:22
[2016-09-14 19:50] VITALS: BP 143/78
[2016-09-14] MEDS: SIMVASTATIN 20 MG TABLET PO SCH (19:58)
[2016-09-14 23:00] VITALS: BP 121/67
[2016-09-15] MEDS: PIPERACILLIN/TAZOBACTAM 3.375 GM in IV NORMAL SALINE 50ML 50 ML IV SCH ×2 (00:22→05:48)
[2016-09-15 07:00] VITALS: BP 159/74
--- NOTE | 2016-09-15 08:13 | PDOC ---
GENERAL General: vss and afebrile. awake and alert and has walked without difficulty with half shoe. doesn't think he needs home health for dressings as he can do himself. chest clear and heart regular. some blood on bandage on foot. possibly home later today if ok with ID and ortho. Problems: VITAL SIGNS Vital Signs: Vital Signs Date Time Temp Pulse Resp B/P (MAP) Pulse Ox O2 Delivery O2 Flow Rate FiO2 09/15/16 03:08 Room Air 09/14/16 23:00 98.3 56 18 121/67 (85) 96 98.3 09/14/16 08:00 10.0 I & O I & O Intake and Output 09/15/16 07:00 Intake Total 1590 ml Output Total 440 ml Balance 1150 ml Intake Oral 1590 ml Output Urine Total 440 ml # Voids 4 ALLERGIES Allergies: Allergies Coded Allergies Type Severity Reaction Last Updated Verified No Known Drug Allergies 09/10/16 No MEDS Medications: Current Medications Medications (Trade) Dose Ordered Sig/Mark Start Time Stop Time Status Last Admin Dose Admin Allopurinol (Zyloprim) 100 mg DAILY 09/11/16 09:00 09/14/16 08:08 100 MG Aspirin (Ecotrin) 81 mg 1X ONCE 09/10/16 21:00 09/10/16 21:01 DC 09/10/16 21:42 81 MG Bupivacaine HCl/ Epinephrine Bitart (Marcaine-Epi 0.25%-1:639229) 50 ml STK-MED ONCE 09/13/16 07:08 09/13/16 07:09 DC 09/13/16 08:50 40 ML Cefazolin Sodium 3 gm/Sodium Chloride 100 ml @ 200 mls/hr Q8H 09/13/16 16:00 09/14/16 00:29 DC 09/14/16 00:29 200 MLS/HR Desflurane (Suprane) 30 ml STK-MED ONCE 09/13/16 06:43 09/13/16 06:44 DC Dexamethasone Sodium Phosphate (Decadron) 20 mg STK-MED ONCE 09/13/16 06:44 09/13/16 06:45 DC Ephedrine Sulfate 50 mg STK-MED ONCE 09/13/16 08:22 09/13/16 08:23 DC Fentanyl Citrate (Fentanyl 2ml Vial) 100 mcg STK-MED ONCE 09/13/16 07:24 09/13/16 07:25 DC Guaifenesin (Robitussin) 400 mg BID 09/10/16 21:00 09/11/16 21:21 DC Hydrochlorothiazide (Hydrodiuril) 25 mg DAILY 09/11/16 09:00 09/12/16 10:28 DC 09/12/16 09:26 25 MG Hydrochlorothiazide (Microzide) 12.5 mg DAILY 09/13/16 09:00 09/14/16 08:09 12.5 MG Hydromorphone HCl (Dilaudid) 0.5 mg PRN Q10MIN PRN 09/13/16 06:45 09/14/16 06:44 DC Lidocaine HCl (Lidocaine Pf 2% Vial) 5 ml STK-MED ONCE 09/13/16 06:44 09/13/16 06:45 DC Linagliptin (Tradjenta) 5 mg DAILY 09/11/16 09:00 09/14/16 08:09 5 MG Lisinopril (Prinivil) 20 mg DAILY 09/14/16 10:00 Metformin HCl (Glucophage) 1,000 mg 1X ONCE 09/10/16 21:00 09/10/16 21:01 DC 09/10/16 21:42 1,000 MG Metoprolol Tartrate (Lopressor) 50 mg BID 09/10/16 21:00 09/14/16 19:58 50 MG Morphine Sulfate 1 mg PRN Q10MIN PRN 09/13/16 06:45 09/14/16 06:44 DC Multivitamins (Thera M Plus) 1 tab DAILY 09/11/16 09:00 09/14/16 08:09 1 TAB Ondansetron HCl (Zofran) 4 mg PRN Q6HRS PRN 09/13/16 06:45 09/14/16 06:44 DC Pioglitazone HCl (Actos) 30 mg DAILY 09/11/16 09:00 09/14/16 08:09 30 MG Piperacillin Sod/ Tazobactam Sod 3.375 gm/Sodium Chloride 50 ml @ 100 mls/hr Q6HRS 09/10/16 21:00 09/15/16 05:48 100 MLS/HR Prochlorperazine Edisylate (Compazine) 5 mg PACU PRN PRN 09/13/16 06:45 09/14/16 06:44 DC Propofol 20 ml @ As Directed STK-MED ONCE 09/13/16 06:44 09/13/16 06:45 DC Ringer's Solution 1,000 ml @ 30 mls/hr Q24H 09/13/16 06:40 09/13/16 18:39 DC 09/13/16 07:37 30 MLS/HR Rocuronium [place] (Zemuron) 50 mg STK-MED ONCE 09/13/16 06:44 09/13/16 06:45 DC Sevoflurane (Ultane) 30 ml STK-MED ONCE 09/13/16 08:22 09/13/16 08:23 DC Simvastatin (Zocor) 20 mg HS 09/10/16 21:00 09/14/16 19:58 20 MG Succinylcholine Chloride (Anectine) 200 mg STK-MED ONCE 09/13/16 06:44 09/13/16 06:45 DC Vancomycin HCl 1 each 1X ONCE 09/12/16 10:30 09/12/16 10:30 DC Vancomycin HCl (Vanco Per Pharmacy) 1 each PRN DAILY PRN 09/10/16 20:00 09/11/16 14:53 DC 09/11/16 13:14 1 EACH Vancomycin HCl 2 gm/Sodium Chloride 500 ml @ 250 mls/hr Q12H 09/11/16 11:00 09/11/16 14:53 DC 09/11/16 12:03 250 MLS/HR LAB Lab: Laboratory Tests Test 09/14/16 11:12 09/14/16 16:17 09/14/16 20:53 Glucose (Fingerstick) 113 mg/dL (70-99) 99 mg/dL (70-99) 111 mg/dL (70-99) MARLI THOMPSON MD Sep 15, 2016 08:13
[2016-09-15] MEDS: hydroCHLOROthiazide 12.5 MG CAPSULE PO SCH (08:30)
[2016-09-15] MEDS: PIOGLITAZONE 15 MG TABLET. PO SCH (08:30)
[2016-09-15] MEDS: LINAGLIPTIN 5 MG TABLET PO SCH (08:30)
[2016-09-15] MEDS: ASPIRIN ENTERIC COATED 81 MG TABLET.DR. PO SCH (08:31)
[2016-09-15] MEDS: ALLOPURINOL 100 MG TABLET. PO SCH (08:31)
[2016-09-15] MEDS: LISINOPRIL 20 MG TABLET PO SCH (08:31)
[2016-09-15] MEDS: MULTIVITAMIN with MINERAL TABLET. PO SCH (08:31)
[2016-09-15] MEDS: METOPROLOL TART IMMED RELEASE 50 MG TABLET. PO SCH (08:31)
--- NOTE | 2016-09-15 10:57 | PDOC ---
Infectious Disease Note Subjective Subjective Comfortable, denies pain ,, had amputation done ROS ROS GEN: Denies fevers, chills, sweats HEENT: Denies blurred vision, sore throat CV: Denies chest pain RESP: Denies shortness of air, cough GI: Denies n/v/d NEURO: Denies confusion, dizziness MSK: Denies weakness, joint pain/swelling Vital Sign Vital Signs Vital Signs Date Time Temp Pulse Resp B/P (MAP) Pulse Ox O2 Delivery O2 Flow Rate FiO2 09/15/16 08:31 55 159/74 09/15/16 08:00 Room Air 09/15/16 07:00 97.7 18 98 97.7 09/14/16 08:00 10.0 Physical Exam PHYSICAL EXAM GENERAL: NAD, Alert HEENT: PERRL, OC/OP NECK: Supple, no JVD, no LN LUNGS: Clear HEART: S1S2, no gallop, no murmur ABD: Soft, NT, no organomegaly, no rebound EXT: No edema, no cyanosis.. amp site with some bleeding but other rider good BLOCK CLEANER: Alert, oriented x 3, no focal neurologic deficit SKIN: No rash IV: ok Labs Lab Laboratory Tests Test 09/14/16 11:12 09/14/16 16:17 09/14/16 20:53 09/15/16 07:37 Glucose (Fingerstick) 113 mg/dL (70-99) 99 mg/dL (70-99) 111 mg/dL (70-99) 86 mg/dL (70-99) Micro ANAEROBIC-AEROBIC CULTURE Preliminary Preliminary report ANAEROBIC RES 1 Preliminary Comment No anaerobes recovered in 48 hours. AEROBIC CULT Preliminary Preliminary report AEROBIC RES 1 Preliminary Enterococcus species Moderate growth AEROBIC RES 2 Preliminary Staphylococcus aureus Moderate growth Performed at: [address] [id number] [employer]: Johana Hall MD, Phone: [phone] Objective Assessment Osteomyelitis of right foot. s/p Amputation Renal insufficiency, has one kidney Diabetes II Obesity with BMI 43 Plan Plan of Care change to po augmentin f/u with me if needed CAT KIRK MD Sep 15, 2016 10:57
[2016-09-15 11:00] VITALS: BP 144/74
[2016-09-15] MEDS ORDERED: AMOXICILLIN/K CLAV 875/125MG TABLET. PO SCH (11:30)
[2016-09-15] MEDS ORDERED: AMOX1TAB11 PO ×2 (13:43→13:44)
--- NOTE | 2016-09-16 17:17 | PATHOLOGY ---
PATHOLOGY REPORT * * * * * * * * FINAL DIAGNOSIS: Right first toe and metatarsal amputation: - Large open wound of skin and subcutaneous tissue of plantar aspect of foot lined by fibrin and granulation tissue showing focal acute inflammation. - Reactive new bone formation of underlying proximal phalangeal bone with edema and focal recent hemorrhage of phalangeal marrow. - Focal eosinophilic deposits with surrounding granulomatous inflammatory reaction involving soft tissue of proximal phalangeal-metatarsal joint consistent with gouty deposit. - Degenerative arthritis of separate metatarsal bone with focal subarticular cystic degeneration and focal bony sclerosis. (JPM:db; 09/15/2016) REPORT ELECTRONICALLY SIGNED BY: Antwan Neal M.D. DATE/TIME: 09/16/2016 17:16 * * * * * * * * GROSS PATHOLOGY: The specimen is received in formalin labeled "[place], right great toe with metatarsal". Received is an amputated digit measuring 7.7 x 5.1 x 4.9 cm in greatest dimensions. The bone margin is irregular in contour and concave in appearance, consistent with disarticulation. The bone and soft tissue margins are inked black. The epidermal surface on the plantar aspect displays a poorly circumscribed, irregular in contour, focally ulcerated and pale wild to wild-brown lesion measuring 3.6 x 2.7 cm, which grossly abuts the inked margin. The nail is present displaying a pale wild and thickened appearance. The remainder the epidermal surface is pale wild and sloughing in appearance. A full-thickness longitudinal cross-section is submitted in cassettes A1 through A4, submitted from proximal to distal aspects, following decalcification. A business services representative section of the lesion to show relationship to the inked margin is submitted in cassette A5. Also received within the specimen container is an additional segment of bone displaying one smooth convex margin and one blunt margin, consistent with transection, measuring 3.8 x 2.8 x 2.8 cm in greatest dimensions. The blunt margin is inked black. A full-thickness cross-section is submitted in cassettes A6 and A7, following decalcification. (CAA; 09/15/2016) INITIAL CPT CODE(S): A; 96222, 45715 Professional services performed by [facility] at [address] [address] Technical services performed by [facility] at [address] [place] [address], [address], [place] [address]. SPECIMEN(S) RECEIVED: A.Right great toe with metatarsal CLINICAL HISTORY: None provided PATIENT: ANGEL ROCK /AGE: 1012/16/1950 (Age: 65) PATIENT #: [id number] ALT CASE #: SPECIMEN COLLECTION DATE: 09/13/2016 SPECIMEN RECEIVED DATE: 09/13/2016 [facility] - [id number] [place] [address] - PHONE: [phone] * * * END OF REPORT * * *
== END 2016-09-15 14:25 | disposition home or self-care (01) | DRG 617 ==
LOC: 6 SOUTH 14:43
PROVIDERS: ADMIT Family Medicine; ATTEND Family Medicine
PROC: 0Y6P0Z0 Detachment at Right 1st Toe, Complete, Open Approach (ICD-10-PCS; principal; 2016-09-10)
DX: E11.69 Type 2 diabetes mellitus with other specified complication (principal); Z68.41 Body mass index [BMI] 40.0-44.9, adult; M86.8X7 Other osteomyelitis, ankle and foot; E11.621 Type 2 diabetes mellitus with foot ulcer; E66.9 Obesity, unspecified; L97.519 Non-pressure chronic ulcer of other part of right foot with unspecified severity; M19.079 Primary osteoarthritis, unspecified ankle and foot; N28.9 Disorder of kidney and ureter, unspecified; Z87.891 Personal history of nicotine dependence; Z80.42 Family history of malignant neoplasm of prostate; Z80.8 Family history of malignant neoplasm of other organs or systems
CPT/HCPCS: 36415; 73620; 73630; 80053; 82962; 83036; 85027; 85651; 87071; 87075; 87186; 87205; 88305; 88311; J0330; J0690; J1100; J2001; J2543; J2704; J3010; J3370; J7040; J7120; 97116; 97530